=== PATIENT | female | born 1960 | race Caucasian/White ===

== ENCOUNTER → 2019-11-23 | Outpatient (CLI) | payer OTHER | END | disposition home or self-care (01) | LOC: MRI 14:27 | DX: D32.0 Benign neoplasm of cerebral meninges (principal) | CPT/HCPCS: 70552 ==

== ENCOUNTER 2021-08-13 07:39 | Outpatient (CLI) | payer OTHER | END 2021-08-13 07:52 | disposition home or self-care (01) | LOC: MRI 07:39 | DX: D32.0 Benign neoplasm of cerebral meninges (principal); G93.89 Other specified disorders of brain | CPT/HCPCS: 70552 ==

== ENCOUNTER 2022-11-15 13:10 | Outpatient (CLI) | payer OTHER | END 2022-11-15 13:21 | disposition home or self-care (01) | LOC: MAMO-SONO 13:10 | PROVIDERS: ATTEND Emergency Medicine Pediatric Emergency Medicine | DX: N60.11 Diffuse cystic mastopathy of right breast (principal) ==

== ENCOUNTER 2025-03-10 08:27 | Outpatient (CLI) | payer OTHER | END 2025-03-10 08:28 | disposition home or self-care (01) | LOC: NUCLEAR 08:27 | PROVIDERS: ATTEND Internal Medicine | DX: I10 Essential (primary) hypertension (principal); I49.9 Cardiac arrhythmia, unspecified ==